=== PATIENT | male | born 1985 | race Caucasian/White ===

== ENCOUNTER 2017-09-28 14:26 | Emergency (ER) | payer MEDICAID ==
[~2017-09-28] VITALS: Ht 170.2 cm; Wt 63.5 kg
[2017-09-28] MEDS ORDERED: PALI117D IM (14:42)
[2017-09-28] MEDS ORDERED: LORAZEPAM 1 MG TABLET PO ONE (15:00)
[2017-09-28 15:13] VITALS: BP 136/92
[2017-09-28] MEDS ORDERED: LORAZEPAM 1 MG TABLET ONE (16:12)
== END 2017-09-28 17:08 | disposition home or self-care (01) ==
LOC: ER 14:28
DX: F41.9 Anxiety disorder, unspecified (principal); F20.9 Schizophrenia, unspecified
CPT/HCPCS: 71045-TC; A4606; Z7610